=== PATIENT | female | born 1995 | race Caucasian/White ===

== ENCOUNTER 2020-04-18 10:15 | Emergency (ER) | payer OTHER ==
[2020-04-18 13:40] LABS: HEMOGLOBIN 12.7 gm/dl (12.3-15.3); RED BLOOD COUNT 4.36 M/UL (4.00-5.10); WHITE BLOOD COUNT 8.9 K/UL (4.5-11.0)
[2020-04-18 14:01] LABS: BUN/CREATININE RATIO 11 (0-10)
[2020-04-18] MEDS ORDERED: REGLAN10 MG PO (14:46)
[2020-04-18] MEDS ORDERED: MACROBID 100 M100 MG PO (14:46)
== END 2020-04-18 15:03 | disposition home or self-care (01) ==
LOC: ER1 10:15
PROVIDERS: Physician Assistant Medical
DX: O23.41 Unspecified infection of urinary tract in pregnancy, first trimester (principal); Z98.890 Other specified postprocedural states; Z3A.10 10 weeks gestation of pregnancy
CPT/HCPCS: 76817; 80053; 81001; 83690; 84702; 85025; 96374; 99284; J2765